=== PATIENT | female | born 1975 ===

== ENCOUNTER 2016-06-11 21:30 | Emergency (ER) | payer MEDICAID, OTHER ==
[2016-06-11 22:06] LABS: SPECIFIC GRAVITY 1.015 (1.001-1.030); URINE BILIRUBIN NEGATIVE (NEGATIVE); URINE BLOOD 1+ (NEGATIVE); URINE GLUCOSE (UA) 3+ (NEGATIVE); URINE LEUKOCYTE ESTERASE 1+ (NEGATIVE); URINE NITRITE NEGATIVE (NEGATIVE); URINE PROTEIN NEGATIVE (NEGATIVE); URINE UROBILINOGEN NORMAL (0-1 mg/dl)
[2016-06-11 22:09] LABS: HCG,QUALITATIVE URINE NEGATIVE
[2016-06-11 22:10] LABS: URINE APPEARANCE CLEAR; URINE COLOR YELLOW
[2016-06-11 22:13] LABS: URINE BACTERIA 1+; URINE OTHER 1+ YEAST; URINE RBC 0-2 /hpf
[2016-06-11] MEDS ORDERED: DIPHENHYDRAMINE HCL 50 MG CAPSULE ONE (23:26)
== END 2016-06-11 23:49 | disposition home or self-care (01) ==
LOC: ED 21:30
DX: B37.3 Candidiasis of vulva and vagina (principal); E11.9 Type 2 diabetes mellitus without complications; Z79.84 Long term (current) use of oral hypoglycemic drugs
CPT/HCPCS: 81025; 87086; 81001; 99283 ×2; A9270